=== PATIENT | male | born 1990 | race Caucasian/White ===

== ENCOUNTER 2017-02-06 16:23 | Emergency (ER) | payer OTHER ==
[~2017-02-06] VITALS: Ht 175.3 cm; Wt 80.0 kg
[2017-02-06 17:47] LABS: BASOPHILS % 0.4 % (0.0-2.0); EOSINOPHILS % 0.9 % (0.0-5.0); HEMATOCRIT. 42.8 % (42.0-52.0); HEMOGLOBIN. 14.6 g/dL (14.0-18.0); MEAN CORPUSCULAR HEMOGLOBIN 29.6 pg (28.0-32.0); MEAN CORPUSCULAR VOLUME 87.1 fL (80.0-94.0); MEAN PLATELET VOLUME 8.2 fl (7.4-10.4); MONOCYTES % 6.6 % (2.0-8.0); NEUTROPHILS % 78.1 % (40.0-76.0); PLATELET 196 x1000/uL (130-400); RED BLOOD CELL COUNT 4.92 mill/uL (4.7-6.1); RED CELL DISTRIBUTION WIDTH 13.9 % (11.6-14.6)
[2017-02-06 17:52] LABS: CHLORIDE 112 mEq/L (98-107)
[2017-02-06 17:58] LABS: CARBON DIOXIDE 27 mEq/L (21-32); ETHANOL BLOOD < 10 mg/dL
[2017-02-06 18:33] LABS: CLARITY URINE CLOUDY (CLEAR); COLOR URINE YELLOW (YELLOW); GLUCOSE URINE NEGATIVE (NEGATIVE); KETONES URINE NEGATIVE (NEGATIVE); LEUKOCYTE ESTERASE URINE NEGATIVE (NEGATIVE); NITRITE URINE NEGATIVE (NEGATIVE); OCCULT BLOOD URINE NEGATIVE (NEGATIVE); PROTEIN URINE NEGATIVE (NEGATIVE); UROBILINOGEN URINE 0.2 E.U./dL (0.2-1.0)
[2017-02-06 18:59] LABS: *AMPHETAMINES SCREEN URINE NEGATIVE (NEGATIVE); *BARBITURATES SCREEN URINE NEGATIVE (NEGATIVE); *BENZODIAZEPINES SCREEN URINE NEGATIVE (NEGATIVE); *COCAINE SCREEN URINE NEGATIVE (NEGATIVE); CANNABINOID URINE SCREEN PRESUMTIVE POSITIVE (NEGATIVE); METHADONE URINE SCREEN NEGATIVE (NEGATIVE); OPIATES URINE SCREEN NEGATIVE (NEGATIVE); PHENCYCLIDINE URINE SCREEN NEGATIVE (NEGATIVE)
[2017-02-07 10:55] VITALS: BP 125/82
== END 2017-02-07 11:00 | disposition home or self-care (01) ==
LOC: ER 16:49
DX: F20.9 Schizophrenia, unspecified (principal); F91.8 Other conduct disorders
CPT/HCPCS: 36415; 80053; 80305; 80307; 81001; 85025; 99284; G0482

== ENCOUNTER 2021-06-17 13:27 | Emergency (ER) | payer MEDICAID, OTHER ==
[~2021-06-17] VITALS: Ht 170.2 cm; Wt 91.0 kg
[2021-06-17] MEDS ORDERED: OFLO5DRO4 LEFT EAR (15:03)
[2021-06-17] MEDS ORDERED: IBUP-2029 MT (15:04)
[2021-06-17 15:25] VITALS: BP 130/80
== END 2021-06-17 15:25 | disposition home or self-care (01) ==
LOC: ER 13:27
DX: H60.92 Unspecified otitis externa, left ear (principal)
CPT/HCPCS: 99283

== ENCOUNTER 2021-08-29 10:10 | Emergency (ER) | payer MEDICAID ==
[~2021-08-29] VITALS: Ht 175.3 cm; Wt 101.0 kg
[~2021-08-29 10:10] MED LIST: IBUP-2029 MT; OFLO5DRO4 LEFT EAR
[2021-08-29 10:12] VITALS: BP 132/95
== END 2021-08-29 10:45 | disposition home or self-care (01) ==
LOC: ER 10:10
DX: I83.93 Asymptomatic varicose veins of bilateral lower extremities (principal); R03.0 Elevated blood-pressure reading, without diagnosis of hypertension; F20.9 Schizophrenia, unspecified; F31.9 Bipolar disorder, unspecified
CPT/HCPCS: 99281

== ENCOUNTER 2021-09-17 17:27 | Emergency (ER) | payer MEDICAID ==
[~2021-09-17] VITALS: Ht 167.6 cm; Wt 93.0 kg
[2021-09-17 17:32] VITALS: BP 146/82
== END 2021-09-17 20:45 | disposition home or self-care (01) ==
LOC: ER 17:27
DX: M79.605 Pain in left leg (principal); M79.604 Pain in right leg; F17.290 Nicotine dependence, other tobacco product, uncomplicated; Z98.890 Other specified postprocedural states
CPT/HCPCS: 99281; 99406

== ENCOUNTER 2022-06-14 14:40 | Emergency (ER) | payer MEDICAID ==
[~2022-06-14] VITALS: Ht 170.2 cm; Wt 77.0 kg
[2022-06-14 14:44] VITALS: BP 134/80
== END 2022-06-14 16:11 | disposition home or self-care (01) ==
LOC: ER 14:40
DX: T16.1XXA Foreign body in right ear, initial encounter (principal); X58.XXXA Exposure to other specified factors, initial encounter; R03.0 Elevated blood-pressure reading, without diagnosis of hypertension; Y93.E8 Activity, other personal hygiene; Y92.012 Bathroom of single-family (private) house as the place of occurrence of the external cause
CPT/HCPCS: 69200; 99284

== ENCOUNTER 2025-07-30 18:39 | Emergency (ER) | payer MEDICAID ==
[~2025-07-30] VITALS: Ht 167.6 cm; Wt 78.0 kg
[~2025-07-30 18:39] MED LIST changes: +IBUP-1455 MT; -IBUP-2029 MT
[2025-07-30 18:43] VITALS: BP 114/62; PULSE 81; RESP 16; TEMP 97.6; O2SAT 96
== END 2025-07-30 20:20 | disposition home or self-care (01) ==
LOC: ER 18:39
DX: Z00.8 Encounter for other general examination (principal)
CPT/HCPCS: 99281; 99283